=== PATIENT | female | born 2000 | race Hispanic/Latino ===

== ENCOUNTER 2022-04-30 10:49 | Outpatient (CLI) | payer OTHER ==
[2022-04-30 13:58] VITALS: BP 106/67
[2022-04-30 14:13] LABS: Bilirubin,Urine NEG (Negative); Blood,Urine NEG (Negative); Color,Urine Yellow (Yellow); Urobilinogen,Urine < 2.0 mg/dL (<2.0)
[2022-04-30 14:15] LABS: Mucus,Urine FEW /HPF
[2022-04-30] MEDS ORDERED: LACTATED RINGERS 500 ML IV ONE (15:00)
[2022-04-30] MEDS ORDERED: ACETAMINOPHEN 500 MG TAB PO ONE (15:00)
== END 2022-04-30 15:15 | disposition home or self-care (01) ==
LOC: TRG 10:49 → APU 10:50 → TRG 15:15
PROVIDERS: ATTEND Obstetrics & Gynecology
DX: O26.892 Other specified pregnancy related conditions, second trimester (principal); M54.50 Low back pain, unspecified; Z3A.27 27 weeks gestation of pregnancy
CPT/HCPCS: 81001